=== PATIENT | male | born 1990 | race Caucasian/White ===

== ENCOUNTER 2021-10-03 15:55 | Emergency (ER) | payer MEDICAID, SELFPAY ==
[2021-10-03 15:57] VITALS: BP 176/138; PULSE 104; RESP 20; TEMP 37.1; O2SAT 96; BMI 41.0
--- NOTE | 2021-10-03 16:12 | US_ITS ---
PROCEDURE INFORMATION: Exam: US Abdomen, Limited; Right Upper Quadrant Exam date and time: 10/03/2021 4:12 PM Age: 31 years old Clinical indication: Abdominal pain; Epigastric; Additional info: Ruq abd pain after eating TECHNIQUE: Imaging protocol: US abdomen. Real time ultrasound with image documentation. Limited exam focused on the right upper quadrant. COMPARISON: No relevant prior studies available. FINDINGS: Liver: Diffuse increased echogenicity. No masses. Gallbladder: Mild sludge noted. There is no gallbladder wall thickening. Common bile duct: Normal. No stones. No dilation. Pancreas: Visualized pancreas is unremarkable. Right kidney: Normal. No mass. No hydronephrosis. IMPRESSION: 1. Sludge in the gallbladder, but no evidence of acute cholecystitis 2. Mild hepatic steatosis
--- NOTE | 2021-10-03 16:12 | HMH.EDABDPAI ---
ED Disposition Clinical Impression: Upper abdominal pain, Uncontrolled hypertension Disposition: Home, Self-Care Condition on Discharge: Good Instructions: DI for Acute Abdominal Pain, Essential Hypertension Additional Instructions: follow up Gen Surg and PCP, return for worse or any concerns Prescriptions: Dicyclomine HCl [Bentyl 10mg capsule] 10 mg PO TID PRN 5 Days #15 cap PRN Reason: Moderate Pain Pantoprazole Sodium [Protonix 20mg Tab] 20 mg PO DAILY #30 tab Tramadol HCl [Ultram 50mg tablet] 50 mg PO Q8 PRN 2 Days #6 tablet PRN Reason: Moderate Pain Referrals: Mercedes Xiao APRN [Primary Care Provider] - Bobby Saez MD [Staff Physician] - - Critical Care Critical Care Time: No Attestation: On , the high probability of a clinically significant, sudden or life threatening deterioration of the following system(s) required my full and direct attention, intervention and personal management. The time I documented below is in addition to time spent performing reported procedures but includes the following listed in this critical care notation. Medical Decision Making - Giorgi Inquiry Pt receiving controlled substance: No Vital Signs: 10/03/21 15:57 Temperature 98.7 F Temperature Source Oral Pulse Rate [Radial] 104 H Respiratory Rate 20 Blood Pressure [Right Arm] 176/138 H Blood Pressure Mean [Right Arm] 150 Blood Pressure Position [Right Arm] Sitting 02 Sat by Pulse Oximetry 96 Oxygen Delivery Method Room Air - Lab Data Lab Results 10/03/21 16:22: WBC 8.8, RBC 5.09, Hgb 16.1, Hct 48.9, MCV 95.9 H, MCH 31.6 H, MCHC 32.9, RDW 13.3, Plt Count 181, MPV 10.2, Neut % (Auto) 57.7, Lymph % (Auto) 33.9, [place] % (Auto) 5.3, Eos % (Auto) 1.6, Baso % (Auto) 1.5, Neut # (Auto) 5.1, Lymph # (Auto) 3.0, [place] # (Auto) 0.5, Eos # (Auto) 0.1, Baso # (Auto) 0.1 10/03/21 16:22: Sodium 137, Potassium 3.8, Chloride 103, Carbon Dioxide 23, Anion Gap 14.8, BUN 14, Creatinine 0.70, Estimated Creat Clear 270, Estimated GFR 133, Est GFR ( Amer) 161, Glucose 194 H, Calcium 8.7, Total Bilirubin 0.3, AST 45, ALT 68, Alkaline Phosphatase 75, Total Protein 7.1, Albumin 4.2, Globulin 2.9, Albumin/Globulin Ratio 1.4, Lipase 82 Result diagrams: 10/03/21 16:22 10/03/21 16:22 Orders (Tests/Meds): ED MEDICATIONS Discontinued Medications Generic Name Dose Route Start Last Admin Trade Name Freq PRN Reason Stop Dose Admin Hydromorphone HCl 0.5 mg 10/03/21 17:25 10/03/21 17:27 Hydromorphone 2mg/Ml Syringe IV 10/03/21 17:26 0.5 mg ONCE ONE Administration Iopamidol 75 ml 10/03/21 18:01 10/03/21 18:02 Iopamidol-370 (76%);100ml Bottle IV 10/03/21 18:02 75 ml ONCE ONE Administration Morphine Sulfate 8 mg 10/03/21 16:11 10/03/21 16:25 Morphine 8mg/Ml Syringe IV 10/03/21 16:12 8 mg ONCE ONE Administration Ondansetron HCl 8 mg 10/03/21 16:10 10/03/21 16:25 Ondansetron 4mg/2ml Vial IV 10/03/21 16:11 8 mg ONCE ONE Administration Sodium Chloride 10 ml 10/03/21 18:01 10/03/21 18:02 Sodium Chloride 0.9% 10ml Syr (Rad Only) IV 10/03/21 18:02 10 ml ONCE ONE Administration Medical Decision Narrative: 726p, reeval appears well, abd soft, pain controlled, bp elev says he has bp meds at home, asking for rx pain med, ok with plan to f/u pcp and gen surg and return for worse Abdominal Pain HPI - General Stated Complaint: abd pain,vomiting Time Seen by Provider: 10/03/21 16:13 Limitations: No Limitations - History of Present Illness HPI narrative: upper abd pain after eating 1 week, mod-sev pain, n/v bile colored Location: epigastric Severity: moderate Radiation: none Relieving factors: nothing Exacerbating factors: eating Associated symptoms: denies other symptoms - Related Data Previous Rx's Medication Instructions Recorded Dicyclomine HCl [Bentyl 10mg 10 mg PO TID PRN 5 Days #15 cap 10/03/21 capsule] Pantoprazole Sodium [Protonix 20mg
--- NOTE | 2021-10-03 16:30 | PC.NURSE ---
ultrasound at bedside
[2021-10-03 16:33] LABS: Basophils # 0.1 K/mm3 (0-0.2); Basophils % 1.5 % (0.1-2.0); Eosinophils # 0.1 K/mm3 (0.0-0.4); Eosinophils % 1.6 % (0.1-12.0); Hematocrit 48.9 % (42.0-52.0); Hemoglobin 16.1 g/dL (14.1-18.0); Lymphocytes % 33.9 % (10-50); Mean Corpuscular HGB Conc 32.9 g/dL (31.8-35.4); Mean Corpuscular Hemoglobin 31.6 pg (27.0-31.2); Mean Corpuscular Volume 95.9 fl (80-94); Mean Platelet Volume 10.2 fl (7.4-10.4); Monocytes # 0.5 K/mm3 (0.1-1.0); Monocytes % 5.3 % (1.7-9.3); Neutrophils # 5.1 K/mm3 (1.8-7.8); Neutrophils % 57.7 % (37.0-80.0); Platelet Count 181 K/mm3 (142-424); Red Blood Count 5.09 M/mm3 (4.60-6.20); Red Cell Distribution Width 13.3 % (11.5-17.5); White Blood Count 8.8 K/mm3 (4.8-10.8)
[2021-10-03 17:01] LABS: Chloride 103 mmol/L (98-107); Sodium 137 mmol/L (136-145)
[2021-10-03 17:02] LABS: Potassium 3.8 mmoL/L (3.5-5.1)
[2021-10-03 17:04] LABS: Alanine Aminotransferase 68 U/L (12-78); Albumin Level 4.2 g/dl (3.5-5.0); Albumin/Globulin Ratio 1.4 (1.1-1.8); Alkaline Phosphatase 75 U/L (38-126); Anion Gap 14.8 mEq/L (5-15); Aspartate Amino Transferase 45 U/L (17-59); Bilirubin,Total 0.3 mg/dl (0.2-1.3); Blood Urea Nitrogen 14 mg/dl (9-20); Calcium 8.7 mg/dl (8.4-10.2); Carbon Dioxide 23 mmol/L (22.0-30.0); Creatinine Clearance Estimated 270 mL/min (50-200); Estimated Glomerular Filt Rate 133 ml/min (>60); GFR (African American) 161 ML/MIN (>60); Globulin 2.9 g/dL (1.3-3.2); Glucose 194 mg/dl (74-100); Lipase 82 U/L (23-300); Total Protein,Serum 7.1 g/dl (6.3-8.2)
--- NOTE | 2021-10-03 17:18 | CT_ITS ---
PROCEDURE INFORMATION: Exam: CT Abdomen And Pelvis With Contrast Exam date and time: 10/03/2021 5:18 PM Age: 31 years old Clinical indication: Abdominal tenderness; Additional info: Abd pain, PT thought was gallbladder pain TECHNIQUE: Imaging protocol: Computed tomography of the abdomen and pelvis with contrast. Radiation optimization: All CT scans at this facility use at least one of these dose optimization techniques: automated exposure control; mA and/or kV adjustment per patient size (includes targeted exams where dose is matched to clinical indication); or iterative reconstruction. Contrast material: ISOVUE; Contrast volume: 75 ml; Contrast route: IV; COMPARISON: US ABDOMEN LIMITED 10/03/2021 4:22 PM FINDINGS: Liver: Mildly fatty liver. Gallbladder and bile ducts: No calcified gallstones. No gallbladder wall thickening or pericholecystic fluid. No intra- or extra-hepatic biliary ductal dilation. 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 Pancreas is otherwise unremarkable. Spleen: Within normal limits. Adrenal glands: Within normal limits. Kidneys and ureters: Duplicated left renal collecting system incidentally noted. No renal or ureteral stones. No hydronephrosis. Stomach and bowel: Within normal limits. Appendix: Appendix is normal. Intraperitoneal space: No free fluid. No pneumoperitoneum. Vasculature: Within normal limits. Lymph nodes: No enlarged lymph nodes by CT criteria. Urinary bladder: Within normal limits. Reproductive: Within normal limits. 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 Soft tissues: Fat containing left inguinal hernia. IMPRESSION: 1. No acute findings in the abdomen or pelvis. 2. Mildly fatty liver. 3. Fat containing left inguinal hernia. 4. 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 Please correlate with patient history and/or symptoms.
[2021-10-03 20:23] VITALS: BP 176/138; PULSE 83; RESP 20; TEMP 36.8; O2SAT 97
== END 2021-10-03 20:33 | disposition home or self-care (01) ==
PROVIDERS: Emergency Provider Emergency Medicine; PCP Registered Nurse
DX: R10.10 Upper abdominal pain, unspecified (principal); I10 Essential (primary) hypertension
CPT/HCPCS: 74177; 76705; 80053; 83690; 85025; 96374; 99282; J2405; Q9967

== ENCOUNTER 2022-02-05 13:00 | Emergency (ER) | payer MEDICAID, SELFPAY ==
[2022-02-05 13:11] VITALS: BP 154/114; PULSE 95; RESP 18; O2SAT 97; BMI 38.0
[2022-02-05 13:30] VITALS: BP 154/114; PULSE 95; RESP 18; TEMP 36.9; O2SAT 97; BMI 37.8
--- NOTE | 2022-02-05 13:54 | HMH.EDUTC ---
[facility] [place] Disposition Clinical Impression: Strep sore throat Disposition: Home, Self-Care Condition on Discharge: Good Instructions: DI for Strep Throat Additional Instructions: Start antibiotics today be sure to take it as ordered with the full length of time although you should start feeling better in 24-48 hours. Change toothbrush and toothpaste 24-48 hours after starting antibiotics Tylenol or Motrin as needed for fever or pain Encourage fluids, water, Gatorade, Powerade, try cold fluids, popsicles, ice cream will make it feel better You are contagious for 24 hours. Avoid kissing anyone, no eating or drinking after anyone. You are contagious. Follow-up the ER for new or worsening symptoms or no noticeable improvement over the next 24-48 hours. Follow-up with PCP this week. Prescriptions: Azithromycin [Zithromax 250mg tab] 250 mg PO DIRECTED #6 tab Prescription Printed Referrals: Mercedes Xiao APRN [Primary Care Provider] - Time of Disposition: 14:16 Medical Decision Making - Giorgi Inquiry Pt receiving controlled substance: No Vital Signs: 02/05/22 13:11 02/05/22 13:30 Temperature 98.4 F Temperature Source Oral Pulse Rate [Left Radial] 95 H 95 H Respiratory Rate 18 18 Blood Pressure [Right Arm] 154/114 H 154/114 H Blood Pressure Mean [Right Arm] 127 127 Blood Pressure Source [Right Arm] Automatic Cuff Automatic Cuff Blood Pressure Position [Right Arm] Sitting Sitting 02 Sat by Pulse Oximetry 97 97 Oxygen Delivery Method Room Air Room Air - Lab Data Lab Results 02/05/22 13:25: Group A Strep Rapid Positive A [facility] [place] HPI - General Chief complaint: Urgent Treatment Center Stated complaint: sore throat Time Seen by Provider: 02/05/22 13:54 Mode of Arrival: Ambulatory Source of Information: Patient Limitations: No Limitations Description of Symptoms (Recalled from Triage Doc. by RN): PATIENT C/O SORE THROAT, TONGUE BURNING, AND SWOLLEN UVULA HEENT Symptoms (Recalled from RN notes): Yes Resp Symptoms (Recalled from RN notes): No Skin Symptoms (Recalled from RN notes): No MS Symptoms (Recalled from RN notes): No Functional Status (Recalled from RN notes): WNL - History of Present Illness Provider Complaint: 31 yr old male presents for sore throat,swollen uvla and tongue burning - Related Data Previous Rx's Medication Instructions Recorded Dicyclomine HCl [Bentyl 10mg 10 mg PO TID PRN 5 Days #15 cap 10/03/21 capsule] Pantoprazole Sodium [Protonix 20mg 20 mg PO DAILY #30 tab 10/03/21 Tab] Tramadol HCl [Ultram 50mg 50 mg PO Q8 PRN 2 Days #6 tab 10/03/21 tablet] Azithromycin [Zithromax 250mg 250 mg PO DIRECTED #6 tab 02/05/22 tab] Allergies Allergy/AdvReac Type Severity Reaction Status Date / Time No Known Allergies Allergy Verified 10/03/21 16:29 - Worker's Comp Is this a Worker's Comp case?: No [facility] History - Hepatitis A Screen Attestation statement:: This patient has been screened for Hepatitis A risk factors. I have reviewed the patient's past medical history: Yes ROS Obtained: Yes Systems reviewed as appropriate & no additional complaints - Constitutional Constitutional: Reports system reviewed and no additional complaints, except as docu, Denies fatigue, Denies fever(s) - Eyes Eyes: Reports system reviewed and no additional complaints, except as docu, Denies dry eyes - ENT Ears, Nose, Mouth, and Throat: Reports system reviewed and no additional complaints, except as docu, Reports sore throat - Cardiovascular Cardiovascular: Reports system reviewed and no additional complaints, except as docu, Denies chest pain - Respiratory Respiratory: Reports system reviewed and no additional complaints, except as docu, Denies cough - Gastrointestinal Gastrointestingal: Reports: system reviewed and no additional complaints, except as docu. Denies: abdominal pain - Musculoskeletal Musculoskeletal: Reports system reviewed and no addit
[2022-02-05 14:05] LABS: Strep Scrn Group A (Rapid) Positive (Negative)
[2022-02-05 14:20] VITALS: BP 154/114; PULSE 95; RESP 18; TEMP 36.9; O2SAT 97
== END 2022-02-05 14:23 | disposition home or self-care (01) ==
LOC: ER 13:12 → UTC 13:13
PROVIDERS: Emergency Provider Nurse Practitioner Family; PCP Registered Nurse
DX: J02.0 Streptococcal pharyngitis (principal)
CPT/HCPCS: 87430; 99212; G0463